=== PATIENT | female | born 1955 | race Caucasian/White ===

== ENCOUNTER → 2018-10-31 | Outpatient (CLI) | payer OTHER ==
[~2018-10-31] MED LIST: AMARYL2 MG PO; CYCLOBENZAPRINE5 MG PO; IBUPROFEN 200200 M1 PO; LISINOPRIL10 MG PO; NORCO 5-325 TA1 EACH PO; SINGULAIR 10 MG10 M1 PO
== END ==
LOC: CAT 10:59
DX: Z13.6 Encounter for screening for cardiovascular disorders (principal); E78.00 Pure hypercholesterolemia, unspecified; I25.10 Atherosclerotic heart disease of native coronary artery without angina pectoris

== ENCOUNTER → 2021-01-20 | Outpatient (CLI) | payer OTHER | LOC: CAT 13:10 | DX: Z13.6 Encounter for screening for cardiovascular disorders (principal); E78.00 Pure hypercholesterolemia, unspecified; I25.10 Atherosclerotic heart disease of native coronary artery without angina pectoris ==